=== PATIENT | male | born 1990 | race Caucasian/White ===

== ENCOUNTER 2016-09-05 16:45 | Emergency (ER) | payer OTHER ==
--- NOTE | ~2016-09-05 | CR170 ---
[facility] A Service of [facility] RADIOLOGY TEXT RESULTS PATIENT: FABIENNE NARVAEZ LOCATION: SED : 91 UNIT #: [id number] AGE: [address]: Yolanda Avila APRN SEX: M ORDER DR: [id number] [place] [id number] MR#: [id number] Acc #: [id number] NAME: FABIENNE NARVAEZ : 1990 SEX: M STUDY DATE/TIME: 09/05/2016 17:36 UNIT: SED ROOM: STUDY DESCRIPTION: CR Knee 2 Views Rt Attending Physician: Yolanda Avila A.P.R.N. Ordering Physician: Yolanda Tucker A.P.R.N. Primary Care Physician: No Primary Care Physician MEDICAL IMAGING REPORT This report is preliminary unless electronic signature is present. EXAM Right knee. DATE OF EXAM 09/05/2016 HISTORY Lateral knee pain for the last 2 months with no known trauma. Previous history of knee surgery. TECHNIQUE 4 views of the right knee were obtained. FINDINGS AP and lateral projection of the knee shows smooth articular anatomy without indication of fracture or dislocation at the major weight-bearing surface of the knee. There is no indication of radiopaque foreign body about the knee surface or joint effusion. IMPRESSION Normal right knee. Dictated by... Main Gore M.D. THIS IS AN ELECTRONICALLY VERIFIED REPORT Main Gore M.D. at 09/06/2016 8:03 AM OMARIF/travis [facility] A Service [facility] RADIOLOGY TEXT RESULTS PATIENT: FABIENNE NARVAEZ LOCATION: SED : 91 UNIT #: [id number] AGE: [address]: Yolanda Avila APRN SEX: M ORDER DR: TD: 09/05/2016 22:51 JOB #: [id number] MEDICAL IMAGING REPORT Page 1 of 1
[~2016-09-05 16:45] MED LIST: ABILIFY; CLEOCIN PO; CONCERTA; DICLOFENAC PO; FLEXERIL PO; FLEXERIL10 MG PO; IBUPROFEN PO; NO MEDICATIONS; SEROQUEL PO; TYLENOL #3 PO; VICODIN ES 7.51 EACH PO; VOLTAREN50 MG PO; VOLTAREN75 MG PO
== END 2016-09-05 18:36 | disposition home or self-care (01) ==
LOC: SED 16:45
DX: M25.561 Pain in right knee (principal); F32.9 Major depressive disorder, single episode, unspecified; F90.9 Attention-deficit hyperactivity disorder, unspecified type; F17.210 Nicotine dependence, cigarettes, uncomplicated
CPT/HCPCS: 29530; 73560; 99283